=== PATIENT | male | born 1970 | race American Indian/Alaskan Native ===

== ENCOUNTER 2017-03-28 12:37 | Observation (INO) | payer MEDICAID ==
[~2017-03-28] VITALS: Ht 170.2 cm; Wt 78.6 kg
[~2017-03-28 12:37] MED LIST: ATIVAN0.5 MG PO; LAMICTAL 100 M100 MG PO; LAMICTAL200 MG PO; LORTAB 5/500 501 TAB PO; MEDROL 4MG. DOSE4 MG PO; MIRALAX(PO17 GM/1 PA PO; NOMEDS; PERCOCET 5/3251 EACH PO; PHENERGAN 25MG.25 M1 PO; PREDNISONE 20MG20 MG PO; PRILOSEC OTC20 MG PO; PROMETHAZINE12.5 M1 PO; RANITIDINE HCL300 M2 PO; SULFACETAMI15 ML/BO1 OP; ZOFRAN ODT4 MG PO
[2017-03-28 12:42] VITALS: BP 118/76
[2017-03-28 13:15] LABS: HEMOGLOBIN 14.1 g/dL (14.1-18.0); LYMPH # 1.4 K/mm3 (0.7-4.5)
--- NOTE | 2017-03-28 13:18 | Emergency Room Report ---
History of Present Illness Time Seen by [id number] Presenting Problem in Triage HPt arrived:Walked Presenting Problem:PAIN TO UPPER EXTREMITIES AND BOTH SHOULDERS. 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 N Clinical Suspician of Infection? N Mental Status: 1 - Regular (Normal Baseline) Sepsis Risk:Low Sepsis Risk Have you (or family members/close friends) recently traveled outside the [place]? N If Yes, where/when: Have you had exposure to infectious disease within the past month? N TB? Other? Specify: 47 years old male with a history of seizures. Yesterday, he developed bilateral arm swelling and dull aching pain 8/10 worse with activities, he denies over exerting himself out of the workup exposure to medications or chemicals. Today the swelling has subsided but the pain is worse rated 10/10. He admits to having low back pain pressure in character and worse with leg movement. He denies having chest pain shortness of breath palpitations abdominal pain nausea vomiting diarrhea dysuria hematuria or frequency. he denies fever , chills, sore throat or body aches per his sister He was admitted 2-3 years ago for acute renal failure and eneded up with negative cardiac cath at a [facility]. Source patient, family, old records Exam Limitations language barrier, sister was translating. ALLERGIES Coded Allergies: atorvastatin (From LIPITOR) (FACIAL SWELLING 08/04/15) hydrocodone (FACIAL SWELLING 08/04/15) oxycodone (From PERCOCET) (FACIAL SWELLING 08/04/15) Home Medications Active Scripts POLYETHYLENE GLYCOL (Miralax) 17 GM PO DAILY 30 Days Prov: 03/23/16 Reported Medications Lamotrigine (Lamictal) 200 MG PO DAILY History Medical History General CAD? No Angina: No HI: No Hypertension? Yes Hyperlipidemia? Yes CHF? No DVT? No PE? No COPD? No Asthma? No Anemia? No GERD? No Gastric ulcers? No GI Bleed? No Hernia? No Thyroid Problems? No Hypothyroidism? No CVA? No Seizures? Yes Diabetes? No Insulin Dependent: No Insulin Pump: No Home FSBS? No Renal Insuffiency? No End Stage Renal Disease? No UTI? No Stones? No BPH? No GB Disease: Yes Nephritic Syndrome? No Asplenia? No Hepatitis? No Sickle Cell Disease? No Arthritis? No Migraines? No Cataracts? No Glaucoma? No MRSA? No HIV? No TB? No Anxiety? No Depression? No Cancer? No More? No Immunization Hx DT/Tetanus 1-4 Years Ago Flu 2012-14FSN Pneumonia Refuses Surgical Hx Previous Surgery?Y I&D RT LEG HEART CATH GALLBLADDER Family History Family Hx Diabetes Yes CAD Yes Hypertension Yes Hyperlipidemia Yes Cancer Yes TB No Social History Smoking Hx Smoker: Never Smoker Tobacco: No Alcohol Alcohol: No Review of Systems All Other Systems Reviewed and Negative Constitutional no symptoms reported Eyes no symptoms reported ENT no symptoms reported. Respiratory no symptoms reported Cardiovascular no symptoms reported Gastrointestinal no symptoms reported Genitourinary no symptoms reported. Musculoskeletal see HPI, back pain, muscle pain Skin no symptoms reported (acne) Psychiatric/Neurological no symptoms reported Physical Exam Vital Signs Vital Signs Date Time Temp Pulse Resp B/P Pulse O2 O2 Flow FiO2 Ox Delivery Rate 03/28 1355 51 20 109/65 98 03/28 1309 98.1 60 20 118/76 98 03/28 1242 98.1 60 20 118/76 98 tanned face with keloid acne (Collins SHAIKH,[facility]) - WBC >12,000 or <4,000 or 10% bands? 2 or more SIRS Criteria Met? B/P:118/76 MAP:90 Creatinine >2.0? UA output<0.5ml/kg/hr for 2 hrs? Platelet count >100,000? Lactate >2.0mmol/1? INR >1.2 or PTT > than 60 sec? Evidence of Organ Dysfunction? Provider documented clinical suspician of infection? N Sepsis Criteria Count: 1 Sepsis Risk: Low Sepsis Risk General Appearance normal appearance, WD/WN Eye Exam - bilateral eye normal exam, bilateral eye PERRL, bilateral eye EOMI Ear, Nose, Throat hearing grossly normal, normal ENT inspection Neck normal inspection, non-tender, supple, full range of motion Respiratory Status Yes: trachea midline, chest symmetrical, non tender chest. No: respiratory distress. Lung Sounds bilateral: normal breath sounds, lungs clear. Cardiovascular normal exam, regular rate/rhythm, no peripheral edema, no gallop, no JVD, no murmur, no rub, normal peripheral pulses Peripheral Pulses Pulses normal Yes Gastrointestinal normal bowel sounds, normal exam, non tender, soft, no organomegaly Back normal inspection, no CVA tenderness, no vertebral tenderness Extremities non-tender, normal range of motion, swelling (mild swelling of the left fore), mild swelling of the left forearm with NVI. Male Genitalia normal genitalia (circumcised), normal prostate, no hernia Nurse present during exam? Yes Neurologic alert, manager intensive care II-XII nml as tested, normal exam, oriented x 3 Reflexes Reflexes normal Yes Mental status normal mood/affect Skin intact, warm/dry (tanned with facial acne) Lymphatic no adenopathy Medical Decision Making LABS/Meds/Orders Pt receiving controlled substance in ED? No Results/Orders Laboratory Tests 03/28/17 1310: B-Natriuretic Peptide 20, D-Dimer < 100, ESR 0 03/28/17 1309: Sodium 141, Potassium 3.8, Chloride 106, Carbon Dioxide 26, BUN 19 H, Creatinine 1.0, Estimated Creat Clear 101, Estimated GFR (MDRD) 80, Glucose 136 H, Calcium 8.1 L, Total Bilirubin 0.7, AST 33, ALT 61, Alkaline Phosphatase 100 , Creatine Kinase 220, CK-MB (CK-2) Rel Index 0.8, CK and CKMB Interp 1.7, Troponin I < 0.02, Total Protein 7.1, Albumin 3.8, Globulin 3.3 H, Albumin/ Globulin Ratio 1.2, WBC 5.4, RBC 4.57 L, Hgb 14.1, Hct 40.2 L, MCV 88.1, RDW 13.8, Plt Count 193, MPV 9.6, Gran % 65.8, Gran # 3.6, Lymphocytes % 26.0, Monocytes % 4.9, Eosinophils % 2.8, Basophils % 0.5, Lymphocytes # 1.4, Monocytes # 0.3, Eosinophils # 0.2, Basophils # 0.0, PUBS MCHC 35.0, MCH 30.8 Current Medication Orders Sig/Kathia Start time Last Medication Dose Route Stop Time Status Admin Acetaminophen 0 .STK-MED ONE 03/28 144 DC PO Acetaminophen 650 MG ONCE ONE 03/28 1445 DC 03/28 PO 03/28 144 1446 Sodium Chloride 10 ML PRN PRN 03/28 1300 AC IV 03/29 1256 Orders Procedure Date/time Status CHEST(2 VIEWS-NOT PORTABLE) 03/28 1326 Active D-DIMER 03/28 1326 Complete BRAIN NATRIURETIC PEPTIDE 03/28 1326 Complete SED RATE 03/28 1325 Complete 12 LEAD EKG-ÁNGEL (INITIAL) 03/28 1300 Active ELECTROCARDIOGRAM REQUEST 03/28 1259 Active IV SALINE LOCK 03/28 1259 Active COMPLETE METABOLIC PANEL 03/28 1259 Complete CBC WITH AUTO DIFF 03/28 1259 Complete CARDIAC ENZYMES 03/28 1259 Complete XRAY/CT/US XRAY/CT/US XRAY chest, NAD XR interpretation by reviewed by me Xray Results normal/NAD Departure Departure Time of Disposition 1316 Disposition Still a Patient Clinical Impression Primary Impression: Arm pain Secondary Impressions: Atypical chest pain, Back pain Condition STABLE Referrals Danny SHAIKH,Rox Rae Additional Instructions 1300 DUE TO THE ATYPICAL PRESENTATION AND EKG, I TEXTED THE EKG TO DR ARTHUR WHO PRESENTED AND INTERVIEWED THE PATIENT IN THE ED , EXAMINED AND COMPARED HIS EKG. AWAITING THE OLD CATH REPORT AND LAB RESULTS. ST [facility] EKG WAS NEGATIVE THREE YEARS AGO BUT HE CONTINUED TO HAVE PAIN, I DISCUSSED WITH PCP TO ADMIT FOR R/O HI AND FURTHER WORK UP. Discharge Counseling Counseled pt/family regarding diagnosis, medications/RX, home care, follow up needs ED Critical Care Critical Care No If Critical Care minutes are documented, the time involved in the performance of seperately reportable procedures was not counted toward critical care time documented. I directly delivered medical care to this critically ill and/or injured patient. Timely evaluation and treatment was necessary to address the significant organ system(s) dysfunction present in this patient. at 1520
[2017-03-28 13:37] LABS: BUN 19 mg/dL (7-18)
[2017-03-28 13:38] LABS: GFR (ESTIMATED) 80 ML/MIN (>60)
--- NOTE | 2017-03-28 15:40 | RADIOLOGY REPORT PS360 ---
CHEST(2 VIEWS-NOT PORTABLE) HISTORY: bilateral arm pain ORDERING PHYSICIAN: Nahed Guadalupe MD PATIENT AGE: 47 years COMPARISON: 07/07/2015 FINDINGS: The cardiomediastinal silhouette and pulmonary vascularity are within normal limits. The lungs are clear without infiltrates, suspicious nodules, or pleural effusions. No acute bony abnormalities. There is a faint nodular opacity overlying the right lung base may be due to nipple shadow. This may be confirmed with follow-up nipple markers IMPRESSION: No acute finding
[2017-03-28 17:11] VITALS: BP 128/71
[2017-03-28 17:20] VITALS: BP 128/71
[2017-03-28 19:28] VITALS: BP 119/63
[2017-03-28 19:35] VITALS: BP 119/63
[2017-03-29 04:13] VITALS: BP 121/54
--- NOTE | 2017-03-29 07:35 | PHARMACY CLINIC NOTE ---
Patient Demographics Patient Demographics Admission date: 03/28/17 Date: 03/29/17 Time: 0734 Allergies Coded Allergies: atorvastatin (From LIPITOR) (FACIAL SWELLING 08/04/15) hydrocodone (FACIAL SWELLING 08/04/15) oxycodone (From PERCOCET) (FACIAL SWELLING 08/04/15) HEIGHT- FT: 5 IN: 7.00 K.557 VTE General Information Labs: Laboratory Tests 03/28 1309 Hematology Hgb (14.1 - 18.0 g/dL) 14.1 Hct (42.0 - 52.0 %) 40.2 L Plt Count (142 - 424 K/mm3) 193 Disclaimer The following section includes nursing documentation that has been pulled in for pharmacy review. Patient's VTE score: 0 Patient's VTE Risk: VERY LOW RISK Clinical trial participant? No VTE prophylaxis [id number] VTE prophylaxis ordered? Yes Type of prophylaxis/treatment: SOURAV at 0734
[2017-03-29 07:59] VITALS: BP 106/57
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
[2017-03-29 15:23] VITALS: BP 106/57
--- NOTE | 2017-04-03 08:38 | RADIOLOGY REPORT PS360 ---
PROCEDURE: 2-D M-mode and color Doppler study INDICATIONS FOR THE TEST: Chest pain COPD Heart Murmur Tobacco Smoking Palpitations Fatigue Syncope Edema+ Hypertension+Diabetes Mellitus Rheumatic Fever SOB+SIMENTAL Obesity Hyperlipidemia+ Family History HD Additional History abnormal ekg, angina PATIENT INFORMATION HEIGHT: 67 WEIGHT:170 GENDER: Male B/P:106/57 2-D/M-MODE INTERPRETATION: 2-D MEASUREMENTS OBSERVED VALUES IN CMS Right Ventricular Dimension (RVDd) 2.4 Interventricular Septum (Thickness)(IVsd) 1.0 Left Ventricular Internal Dimensions(LVIDd) 4.5 Left Ventricular Posterior Wall (Thickness)(LVPWd) 0.8 Aortic Root 2.9 Aortic Cusp Separation 2.1 Left Atrial Dimensions (LAD) 3.5 2D 1. The left atrium is normal size, left ventricle is normal size, left ventricle wall thickness is upper limit of the normal, there is preserved left ventricular systolic function, visually estimated ejection fraction 55% with no obvious regional wall motion abnormality. 2. The right atrium and right ventricle are normal size and contractility. 3. The aortic, mitral and tricuspid valvular grossly normal. 4. The pulmonic valve is poorly visualized. 5. No significant pericardial effusion noted. DOPPLER INTERROGATION: Doppler interrogation of the aortic mitral and tricuspid valvular presence of mild mitral and tricuspid regurgitation, tricuspid and jet velocity insufficient for calculation of the right ventricular systolic pressure, diastolic parameters are within normal range. CONCLUSION: 1. Normal left ventricular size, preserved left ventricular systolic function, visually estimated ejection fraction of 55% with no obvious regional wall motion abnormality, diastolic parameters are within normal range. 2. Mild mitral and tricuspid regurgitation. 3. No significant pericardial effusion noted.
== END 2017-03-29 15:30 | disposition home or self-care (01) ==
LOC: ER 12:37 → 2ND 15:43 → ER 15:43 → 2ND 16:05
PROVIDERS: Emergency Medicine
DX: I20.9 Angina pectoris, unspecified (principal); I10 Essential (primary) hypertension; R07.9 Chest pain, unspecified
CPT/HCPCS: G0378

== ENCOUNTER 2017-06-19 10:40 | Emergency (ER) | payer MEDICAID ==
[~2017-06-19] VITALS: Ht 170.2 cm; Wt 79.4 kg
--- OUTSIDE RECORDS SUMMARY | 2017-06-19 10:45 | External Medical Summary Rpt | CCD ---
Author Author , HAYDER SINGLETARY Address Unknown Phone Purpose Continuity of Care Document - 04-26-2012 through 2016 Problems Code Diagnosis DOS Provider Status E86.0 DEHYDRATION I21.4 NON-ST ELEVATION (NSTEMI) MYOCARDIAL INFARCTION K82.9 DISEASE OF GALLBLADDER , UNSPECIFIED M54.9 DORSALGIA, UNSPECIFIED M75.81 OTHER SHOULDER LESIONS, RIGHT SHOULDER M75.82 OTHER SHOULDER LESIONS, LEFT SHOULDER M79.603 PAIN IN ARM, UNSPECIFIED N17.9 ACUTE KIDNEY FAILURE, UNSPECIFIED R07.89 OTHER CHEST PAIN R09.1 PLEURISY R10.9 UNSPECIFIED ABDOMINAL PAIN R11.10 VOMITING, UNSPECIFIED T65.291A TOXIC EFFECT OF TOBACCO AND NICOTINE, ACCIDENTAL, INIT
--- OUTSIDE RECORDS SUMMARY | 2017-06-19 10:45 | External Medical Summary Rpt | CCD ---
Author Author [employer] Organization [employer] Address Unknown Phone Unavailable Purpose Continuity of Care Document - through 2016
--- OUTSIDE RECORDS SUMMARY | 2017-06-19 10:46 | External Medical Summary Rpt | CCD ---
Demographics Preferred Language Moroccan Marital Status Unknown Congregational Affiliation Unknown Race Unknown Ethnic Group Unknown Author Author , HAYDER SINGLETARY Address Unknown Phone Immunization Unable to retrieve immunization data due to connection failure with Immunization Registry. Please try again later.
--- OUTSIDE RECORDS SUMMARY | 2017-06-19 10:46 | External Medical Summary Rpt | CCD ---
Demographics Preferred Language Marshallese Marital Status Unknown Yazidism Affiliation Unknown Race Unknown Ethnic Group Unknown Author Author , HAYDER SINGLETARY Address Unknown Phone Immunization Unable to retrieve immunization data due to connection failure with Immunization Registry. Please try again later.
--- OUTSIDE RECORDS SUMMARY | 2017-06-19 10:47 | External Medical Summary Rpt ---
Author Author [employer], [employer] Organization [employer] Address Unknown Phone Unavailable Results Erythrocyte sedimentation rate by Westergren method Observa Value Referen Units Interpr Notes Date tion ce etation Range Erythrocy 0 - 15 mm/hr Normal No Mar 28 te informati 2016 1:10 sedimenta on in PM tion rate source by data Westergre n method Natriutietic peptide B [Mass/volume] in Serum or Plasma Observa Value Referen Units Interpr Notes Date tion ce etation Range Natriutie 0 - 100 pg/mL Normal No Mar 28 tic informati 2016 1:10 peptide B on in PM source [Mass/vol data ume] in Serum or Plasma CBC W Auto Differential panel in Blood Observa Value Referen Units Interpr Notes Date tion ce etation Range Basophils 0 - 0.2 K/MM3 Normal No Mar 28 informati 2016 1:09 [#/volume on in PM ] in source Blood by data Automated count Basophils 0.1 - 2.0 % Normal No Mar 28 informati 2016 1:09 leukocyte on in PM s in source Blood by data Automated count Eosinophi 0.0 - 0.4 K/mm3 Normal No Mar 28 ls informati 2016 1:09 [#/volume on in PM ] in source Blood by data Automated count Eosinophi 0.1 - % Normal No Mar 28 ls/100 12.0 informati 2016 1:09 leukocyte on in PM s in source Blood by data Automated count Granulocy 1.3 - 8.0 K/mm3 Normal No Mar 28 radha informati 2016 1:09 [#/volume on in PM ] in source Blood by data Automated count Granulocy 37.0 - % Normal No Mar 28 radha/100 80.0 informati 2016 1:09 leukocyte on in PM s in source Blood by data Automated count Hematocri 42.0 - % Low No Mar 28 t [Volume 52.0 informati 2016 1:09 on in PM Fraction] source of Blood data Hemoglobi 14.1 - g/dL Normal No Mar 28 n 18.0 informati 2016 1:09 [Mass/vol on in PM ume] in source Blood data Lymphocyt 0.7 - 4.5 K/mm3 Normal No Mar 28 es informati 2016 1:09 [#/volume on in PM ] in source Unspecifi data ed specimen by Automated count Lymphocyt 10 - 50 % Normal No Mar 28 es informati 2016 1:09 [#/volume on in PM ] in source Unspecifi data ed specimen by Automated count Erythrocy 27 - 31.2 pg Normal No Mar 28 te mean informati 2017 1:09 corpuscul on in PM ar source hemoglobi data n [Entitic mass] Erythrocy 31.8 - g/dl Normal No Mar 28 te mean 35.4 informati 2016 1:09 corpuscul on in PM ar source hemoglobi data n concentra tion [Mass/vol ume] by Automated count Erythrocy 82.2 - fl Normal No Mar 28 te mean 97.8 informati 2016 1:09 corpuscul on in PM ar volume source [Entitic data volume] by Automated count Monocytes 0.1 - 1.0 K/mm3 Normal No Mar 28 informati 2016 1:09 [#/volume on in PM ] in source Blood by data Automated count Monocytes 1.7 - 9.3 % Normal No Mar 28 /100 informati 2017 1:09 leukocyte on in PM s in source Blood by data Automated count Platelet 7.4 - fl Normal No Mar 28 mean 10.4 informati 2016 1:09 volume on in PM [Entitic source volume] data in Blood by Automated count Platelets 142 - 424 K/mm3 Normal No Mar 28 informati 2016 1:09 [#/volume on in PM ] in source Blood data Erythrocy 4.6 - 6.2 M/mm3 Low No Mar 28 radha informati 2017 1:09 [#/volume on in PM ] in source Amniotic data fluid Erythrocy 11.5 - % Normal No Mar 28 te 17.5 informati 2016 1:09 distribut on in PM ion width source [Entitic data volume] by Automated count Leukocyte 4.8 - K/MM3 Normal No Mar 28 s 10.8 informati 2016 1:09 [#/volume on in PM ] in source Blood data Lamotrigine [Mass/volume] in Serum or Plasma Observa Value Referen Units Interpr Notes Date tion ce etation Range Lamotrigi 2.0 - ug/mL No Detection Mar 10 ne 20.0 informati Limit = 2017 8:45 [Mass/vol on in 1.0Perfor PM ume] in source med at: Serum or data BN - Plasma [facility] [address] [place], [place] [id number] [employer]ular Saw Filer: Mac Phillip MD, Phone: [phone] 4 Comprehensive metabolic 2000 panel in Serum or Plasma Observa Value Referen Units Interpr Notes Date tion ce etation Range Albumin/G 1.1 - 1.8 No Normal No Mar 10 lobulin informati informati 2016 8:45 [Mass on in on in PM ratio] in source source Serum or data data Plasma Albumin 3.4 - 5.0 gm/dL Normal No Mar 10 [Mass/vol informati 2016 8:45 ume] in on in PM Serum or source Plasma data Alkaline 46 - 116 U/L Normal No Mar 10 phosphata informati 2016 8:45 se on in PM [Enzymati source c data activity/ volume] in Serum or Plasma Bilirubin 0.2 - 1.0 mg/dL Normal No Mar 10 .total informati 2016 8:45 [Mass/vol on in PM ume] in source Serum or data Plasma Urea 7 - 18 mg/dL High No Mar 10 nitrogen informati 2016 8:45 [Mass/vol on in PM ume] in source Serum or data Plasma Calcium 8.5 - mg/dL Normal No Mar 10 [Mass/vol 10.1 informati 2016 8:45 ume] in on in PM Serum or source Plasma data Chloride 98 - 107 mmoL/L Normal No Mar 10 [Moles/vo informati 2016 8:45 lume] in on in PM Serum or source Plasma data Carbon 21.0 - mmoL/L Normal No Mar 10 dioxide, 32.0 informati 2017 8:45 total on in PM [Moles/vo source lume] in data Serum or Plasma Creatinin 0.70 - mg/dL High No Mar 10 e 1.30 informati 2017 8:45 [Mass/vol on in PM ume] in source Serum or data Plasma Creatinin 50 - 200 ML/MIN Normal No Mar 10 e renal informati 2017 8:45 clearance on in PM source predicted data by Cockcroft -Gault formula Estimated >60 ML/MIN No REFERENCE Mar 10 informati RANGE: 2017 8:45 glomerula on in >60 PM r source ML/MIN/1. filtratio data 73 SQUARE n rate METERSIf (GF this patient is -A merican, then multiply theresult by 1.210. Globulin 1.3 - 3.2 gm/dL High No Mar 10 [Mass/vol informati 2016 8:45 ume] in on in PM Serum source data Glucose 74 - 106 mg/dL High No Mar 10 [Mass/vol informati 2016 8:45 ume] in on in PM Serum or source Plasma data Potassium 3.5 - 5.1 mmoL/L Normal No Mar 102016 8:45 [Moles/vo on in PM lume] in source Serum or data Plasma Sodium 136 - 145 mmoL/L Normal No Mar 10 [Moles/vo 2016 8:45 lume] in on in PM Serum or source Plasma data Aspartate 15 - 37 U/L Normal Mar 102016 8:45 aminotran on in PM sferase source [Enzymati data c activity/ volume] in Serum or Plasma Alanine 12 - 78 U/L Normal No Mar 10 aminotran 2016 8:45 sferase on in PM [Enzymati source c data activity/ volume] in Serum or Plasma Protein 6.4 - 8.2 gm/dL Normal Mar 10 [Mass/vol informati 2016 8:45 ume] in on in PM Serum or source Plasma data CBC W Auto Differential panel in Blood Observa Value Referen Units Interpr Notes Date tion ce etation Range Basophils 0 - 0.2 K/MM3 Normal No Mar 102016 8:45 [#/volume on in PM ] in source Blood by data Automated count Basophils 0.1 - 2.0 % Normal No Mar 10 / informati 2016 8:45 leukocyte on in PM s in source Blood by data Automated count Eosinophi 0.0 - 0.4 K/mm3 Normal Mar 10 ls ati 2016 8:45 [#/volume on in PM ] in source Blood by data Automated count Eosinophi 0.1 - % Normal Mar 10 ls/100 12.0 informati 2016 8:45 leukocyte on in PM s in source Blood by data Automated count Granulocy 1.3 - 8.0 K/mm3 High No Mar 10 ardha informati 2016 8:45 [#/volume on in PM ] in source Blood by data Automated count Granulocy 37.0 - % Normal No Mar 10 radha/100 80.0 informati 2016 8:45 leukocyte on in PM s in source Blood by data Automated count Hematocri 42.0 - % Normal No Mar 10 t [Volume 52.0 informati 2016 8:45 on in PM Fraction] source of Blood data Hemoglobi 14.1 - g/dL Normal No Mar 10 n 18.0 informati 2016 8:45 [Mass/vol on in PM ume] in source Blood data Lymphocyt 0.7 - 4.5 K/mm3 Normal No Mar 10 es informati 2016 8:45 [#/volume on in PM ] in source Unspecifi data ed specimen by Automated count Lymphocyt 10 - 50 % Normal No Mar 10 es inform2016 8:45 [#/volume on in PM ] in source Unspecifi data ed specimen by Automated count Erythrocy 27 - 31.2 pg Normal No Mar 10 te mean informati 2016 8:45 corpuscul on in PM ar source hemoglobi data n [Entitic mass] Erythrocy 31.8 - g/dl Normal No Mar 10 te mean 35.4 informati 2016 8:45 corpuscul on in PM ar source hemoglobi data n concentra tion [Mass/vol ume] by Automated count Erythrocy 82.2 - fl Normal No Mar 10 te mean 97.8 informati 2016 8:45 corpuscul on in PM ar volume source [Entitic data volume] by Automated count Monocytes 0.1 - 1.0 K/mm3 Normal No Mar 10 informati 2016 8:45 [#/volume on in PM ] in source Blood by data Automated count Monocytes 1.7 - 9.3 % Normal No Mar 10 /100 informati 2017 8:45 leukocyte on in PM s in source Blood by data Automated count Platelet 7.4 - fl Normal No Mar 10 mean 10.4 informati 2016 8:45 volume on in PM [Entitic source volume] data in Blood by Automated count Platelets 142 - 424 K/mm3 Normal No Mar 10 informati 2016 8:45 [#/volume on in PM ] in source Blood data Erythrocy 4.6 - 6.2 M/mm3 Normal No Mar 10 radha informati 2016 8:45 [#/volume on in PM ] in source Amniotic data fluid Erythrocy 11.5 - % Normal No Mar 10 te 17.5 informati 2016 8:45 distribut on in PM ion width source [Entitic data volume] by Automated count Leukocyte 4.8 - K/MM3 High No Mar 10 s 10.8 informati 2016 8:45 [#/volume on in PM ] in source Blood data EC ECHOCARDIOGRAM COMPLETE W DOPPLER AND COLOR FLOW MAPPING Observa Value Referen Units Interpr Notes Date ti ce etation Range St. No No No No Apr 28 Elizabe informa informa informa informa 2011 in tion in ti in ti in 9:19 AM [facility] source source source source are-[place] data data data data [id number] 00 [facility] joelle [facility] [id number] [phone] mTranst horacic EchoRep Verónica MARTINETREY DILLARD Exam Date: 012 09:19 Orderin g Phys: ECHO MALDONADO JAge: 42 Gender: M Exam Locatio n: [facility] ECHO Referri ng Phys:MANJINDER MACHADO JMRN: [id number] Room Number: [id number] Technol ogist: Jennifer Friend, RHETTCSDOB : 1970-07 -23Ht: 67 in Wt: 180 lbs BSA: 1.98 Accessi on Number: [id number]: 53 bpm BP: 114 / 54 mmHgPro cedure CPT:Ind ication : ISCHEMI C STROKEI CD-9 Codes:C ritical Result: No Critica l Finding History : Ischemi c Stroke, SOB, Numbnes sRhythm : Bradyca rdiaMEA SUREMEN TS (Male / Female) Normal Values Technic al Quality :MEASUR EMENTS 2D ECHOLV Diastol ic Diamete r AISHA 5.2 cm 4.2 - 5.9 / 3 LVPW Diastol ic Thickne ss 1.0 cm 0.6 - 1.1 cmLV Systoli c Diamete r PLAX 3.6 cm RV Interna l Dim ED PLAX 2.2 cmIVS Diastol ic Thickne ss 0.9 cm 0.6 - 1.0 / 0.6 - 0.9 cmMEASU REMENTS M-MODEL V Diastol ic Diamete r MM 5.9 cm 4.2 - 5.9 / 3 LVPW Diastol ic Thickne ss 1.1 cm 0.6 - 1.0 / 0.6 - 0.9 cmLV Systoli c Diamete r MM 3.0 cm RV Diastol ic Diamete r MM 1.2 cmLV Cardiac Index MM Teich 3712.8 cm3 Aortic Root Diamete r MM 3.3 cmIVS Diastol ic Thickne ss M 1.1 cm 0.6 - 1.1 / 0 LA Systoli c Diamete r MM 4.8 cmMEASU REMENTS DOPPLER Mitral E to A Ratio 1.2 Right Ventric ular Systoli 32.7 mmHgTR Peak Velocit y 238.0 cm/s Mitral E to LV E' Lateral 4.3TR Peak Gradien t 22.7 mmHg Mitral E to LV E' Septal 5.4FIND INGSLef t Ventric le Left ventric ular ejectio n fractio n estimat ed at 55-60%. Left ventric ular wall thickne ss at upper limits of normal. Normal global left ventric ular size, systoli c functio n with no obvious regiona l wall motion abnorma lities. Right Ventric le Normal right ventric ular size and functio n.Right Atrium Right atrial size appears upper limits of normal. Left Atrium Moderat e left atrial dilatat ion.Federico ral Valve Mild thicken ing/yulia cificat ion of the mitral valve leaflet s. Mild mitral regurgi tation. Aortic Valve Trileaf let aortic valve. Diffuse thicken ing (sclero sis) of the aortic valve cusps without reduced excursi on.No aortic valve stenosi s or regurgi tation. Tricusp id Valve Structu rally normal tricusp id valve. Mild tricusp id regurgi tation. Right ventric ular systoli c pressur eestima elisabeth at 33mmHg. Pulmoni c Valve Structu rally normal pulmoni c valve. Trace pulmoni c regurgi tation. Pericar dium No pericar dial effusio n.Aorta Normal size aortic root and proxima l ascendi ng aorta.C ONCLUSI ONSLeft ventric ular ejectio n fractio n estimat ed at 55-60%. No obvious regiona l wall motion abnorma lities. Mild mitral regurgi tation. Right ventric ular systoli c pressur e estimat ed at 33mmHg. Mild mitral regurgi tation. Warren mendoza MD(Elec tronica lly Signed) Final Date:28 April 2012 16:25 MRI BRAIN WO CONTRAST Observa Value Referen Units Interpr Notes Date tion ce etation Range TEXT MRI of No No No No Apr 28 DIAGNOS the informa informa informa informa 2011 IS brain tion in tion in tion in tion in 8:13 AM [facility] without source source source source data data data data contras t, 12 series, 7:35 a.m., May 09,1251 560Righ t-sided weaknes s, no contras t, no priorsT he orbital content s, pituita ry, and suprase llar cistern are normal. Tonsill ar positio n is abit low but within the range of normal. There is normal flow void in theveno us sinuses ,verteb robasil ar system, and distal interna l carotid arterie s the CSFspac es are normal. Thereis no extra-a xial fluid collect ion. There is mild leukoma lacia mostpro nounced in the frontal lobes. This is likely due to prior small vessel ischemi c disease . Priortr auma anddemy elinati on are also conside rations but there is nothing specifi c hereto suggest multipl esclero sis there is no subacut e or chronic hemorrh age. Diffusi on images ashow no acute infarct .Impres vasquez,No evidenc e of acute cerebra l infarct .Mild leukoma lacia in the frontal lobes, right greater than left. This islikel y due to priorsm all vessel ischemi c disease or prior trauma. Cruz MRI ANGIOGRAM EXTRACRANIAL WO CONTRAST Observa Value Referen Units Interpr Notes Date tion ce etation Range TEXT MRA of No No No No Apr 28 DIAGNOS the informa informa informa informa 2011 IS neck, tion in tion in tion in tion in 8:01 AM [facility] without source source source source data data data data contras t, 6 series, 7:35 a.m., May 09, [id number] t-sided weaknes s, no contras t, no priorsT he patient was imaged from the upper chest to the base of the skull. Thecomm on carotid arterie s are mildly asymmet laura the right being larger than the left. Theinte rnal carotid arterie s are mildly asymmet laura, right larger than left. This is due todevel opmenta l absence ofthe left A1 segment and is not felt to be signifi cant. There is no focalle vasquez and nohemod ynamica lly signifi cant stenosi s. The vertebr al arterie s are normal. Impress ion,Neg ative MRA of the neckMar ks MRI ANGIOGRAM INTRACRANIAL WO CONTRAST Observa Value Referen Units Interpr Notes Date tion ce etation Range TEXT MRA of No No No No Oct 1 DIAGNOS the informa informa informa informa 2011 IS brain, tion in tion in tion in tion in 8:00 AM [facility] 3 source source source source series, data data data data 7:35 a.m., May 09, [id number] Right-s ided weaknes s, no contras t, no priorsT he left vertebr al artery is smaller than the right. The vertebr obasila rsystem is tortuou s.The right P1 is supplie d primari ly by the posteri or communi cator. There isno signifi cantpos terior communi cator on the left. There is moderat e diffuse narrowi ng ofthe distal left andrigh t vertebr al arterie s. These vessels show a 50% loss of cross-s ectiona ldiamet er. Some ofthis may be technic al. The distal interna l carotid arterie s are mildlya symmetr ic the rightbe ing larger than the left. This is due to the fact that both anterio rcerebr als are supplie dby the right interna l carotid artery. The M1 segment s are normal. The right A1 is normal. Impress ion,Mod erate stenosi s of the distal vertebr al arterie s bilater ally.No hemodyn amicall y signifi cant stenosi s.Cruz XR CHEST PA AND LATERAL Observa Value Referen Units Interpr Notes Date tion ce etation Range TEXT AP and No No No No Sep 29 DIAGNOS lateral informa informa informa informa 2011 IS chest: tion in tion in tion in tion in 11:26 BATTERY source source source source PM 04/26/20 data data data data 12.COMP ARISON: None.IN DICATIO N: 42-year -old with numbnes s and dizzine ss.FIND INGS:He art size is mildly enlarge d. Lungs are not well expande d on APradio graph. No focalin filtrat es or pleural effusio ns.IMPR ESSION: 1. Mild cardiom egaly with clear lungs. CT HEAD STROKE PROTOCOL Observa Value Referen Units Interpr Notes Date tion ce etation Range TEXT Head CT No No No No Apr 26 DIAGNOS stroke informa informa informa informa 2012 IS tion in tion in tion in tion in 10:15 BATTERY protoco source source source source PM l: data data data data 04/26/20 12; 22:15.C OMPARIS ON: 1INDICA TION: 42-year -old with leukemi a. Left-si ded facial droop.F INDINGS :Ventri cles are normal in size, configu ration and positio n. Brainpa renchym a attenua tion isnorma l. Jack-wh ite differe ntiatio n remains symmetr ic and normal. Nolocal ized mass effect. Noparen chymal or extra-a xial hemorrh age.Par anasal and mastoid sinuses are clear.I MPRESSI ON:1. Normal study.F indings called to Dr. Cherry at 10:20 p.m. EK EKG 12 LEAD Observa Value Referen Units Interpr Notes Date tion ce etation Range Sinus No No No No Apr 26 bradyca informa informa informa informa 2012 rdia.An tion in tion in tion in tion in 9:49 PM terosep source source source source sarah ST data data data data elevati on, CONSIDE R ACUTE INFARCT No change from previou s tracing Abnorma l ECG
--- OUTSIDE RECORDS SUMMARY | 2017-06-19 10:47 | External Medical Summary Rpt ---
[...] Serum or data BN - Plasma [facility] [address] [place], [place] [id number] Investment Fund Manager: Mac Phillip MD, Phone: [phone] Comprehensive metabolic 2000 panel in Serum [...] - 8.0 K/mm3 High No Mar 10 radha informati 2016 8:45 [...] in ti in ti in 9:19 AM [facility] source source source source are-Douglas data data data data [id number] 00 [facility] joelle [facility] [id number] [phone] mTranst horacic EchoRep Verónica MARTINETREY DILLARD Exam Date: 012 09:19 Orderin g Phys: ECHO MALDONADO JAge: 42 Gender: M Exam Locatio n: [facility] Referri ng Phys:MANJINDER MACHADO JMRN: [id number] Room Number: [id number] Technol ogist: Jennifer Friend, RHETTCSDOB : 1970-07 -23Ht: 66 in Wt: 180 lbs BSA: 1.98 Accessi on Number: [id number]: 53 bpm BP: 114 / 54 [...] Right ventric ular systoli c pressur eestima elisabteh at 33mmHg. Pulmoni c Valve Structu rally [...] t, 6 series, 7:35 a.m., May 09, [id number] t-sided weaknes s, no contras t, [...] data data data 7:35 a.m., May 09, [id number] Right-s ided weaknes s, no contras t, [...]
--- NOTE | 2017-06-19 11:09 | Urgent Treatment Center Report ---
See Addendum History of Present Issue Date/Time Seen by Provider 06/19/17 1103 Visit Reason Pt arrived:Walked Presenting Problem:PT IS C/O COUGH. SOA AND BACK PAIN Location if Accident: Onset of symptoms date/time:/ or onset unknown for:MEDICAL HX UNKNOWN Have you (or family members/close friends) recently traveled outside the [place]? N If Yes, where/when: Have you had exposure to infectious disease within the past month? TB? Other? Specify: Pateint state that he has had cough, pain in his back and short of breath at times. State that when he gets coughing he feels short of breath State that this has been occuring for awhile now and flares up on occasion States that he has not seen his family doctor yet but wanted to come in to make sure he didn't have pneumonia State that when he gets coughing his back hurts ALLERGIES Coded Allergies: acetaminophen (From NORCO) (06/19/17) atorvastatin (From LIPITOR) (FACIAL SWELLING 08/04/15) hydrocodone (FACIAL SWELLING 08/04/15) oxycodone (From PERCOCET) (FACIAL SWELLING 08/04/15) Home Medications Reported Medications Lamotrigine (Lamictal) 200 MG PO DAILY History Medical History General CAD? No Angina: No CO: No Hypertension? Yes Hyperlipidemia? Yes CHF? No DVT? No PE? No COPD? No Asthma? No Anemia? No GERD? No Gastric ulcers? No GI Bleed? No Hernia? No Thyroid Problems? No Hypothyroidism? No CVA? No Seizures? Yes Diabetes? No Insulin Dependent: No Insulin Pump: No Home FSBS? No Renal Insuffiency? No UTI? No Stones? No BPH? No GB Disease: Yes Nephritic Syndrome? No Asplenia? No Hepatitis? No Sickle Cell Disease? No Arthritis? No Migraines? No Cataracts? No Glaucoma? No MRSA? No HIV? No TB? No Anxiety? No Depression? No Cancer? No More? No Immunization HX DT/Tetanus 1-4 Years Ago Flu 2012-FSN Pneumonia Refuses Surgical Hx Previous Surgery?Y I&D RT LEG HEART CATH GALLBLADDER Family History Family HX Diabetes Yes CAD Yes Hypertension Yes Hyperlipidemia Yes Cancer Yes TB No Social History Smoking Hx Smoker: Never Smoker Tobacco: No Alcohol Alcohol: Yes Review of Systems All Other Systems Reviewed and Negative Respiratory cough, shortness of breath Musculoskeletal back pain Physical Exam Vital Signs Vital Signs Date Time Temp Pulse Resp B/P Pulse O2 O2 Flow FiO2 Ox Delivery Rate 06/19 1051 97.8 50 20 119/72 97 General Appearance normal appearance, WD/WN, no apparent distress Ear, Nose, Throat hearing grossly normal, normal ENT inspection Respiratory Status Yes: trachea midline, chest symmetrical, non tender chest. No: respiratory distress. Lung Sounds bilateral: normal breath sounds, lungs clear. Cardiovascular normal exam, regular rate/rhythm Neurologic alert, normal exam, oriented x 3 Medical Decision Making LABS/Meds/Orders Pt receiving controlled substance in ED? No Results/Orders Current Medication Orders Sig/Kathia Start time Last Medication Dose Route Stop Time Status Admin Methylprednisolone 125 MG ONCE ONE 06/19 1145 AC Sodium Succinate IM 06/19 1146 Departure Departure Time of Disposition 1134 Disposition DC Home or Self Care(routine) Clinical Impression Primary Impression: Cough Condition STABLE Referrals Danny SHAIKH,Darin Rae (Family) Patient Instructions Cough, DI for Cough -- Adult Additional Instructions Take cough medication as prescribed Follow up with family doctor RAÚL Return if needed If you began to have worsening trouble breathing or pain go straight to ER Discharge Counseling Counseled pt/family regarding diagnosis, test results, medications/RX, home care, follow up needs Prescriptions Current Visit Scripts PROMETHAZINE/DEXTROMETHORPHAN (Promethazine-Dm Syrup) 5 ML PO Q6HP PRN cough #120 SYR at 1149
--- NOTE | 2017-06-19 11:29 | RADIOLOGY REPORT PS360 ---
CHEST(2 VIEWS-NOT PORTABLE) HISTORY: COUGH ORDERING PHYSICIAN: MEGHAN SALAZAR APRN PATIENT AGE: 47 years COMPARISON: 03/28/2017 FINDINGS: The cardiomediastinal silhouette and pulmonary vascularity are within normal limits. The lungs are clear without infiltrates, suspicious nodules, or pleural effusions. No acute bony abnormalities. IMPRESSION: Negative chest, no acute finding
[2017-06-19] MEDS ORDERED: PROMETHAZINE D118 ML PO (11:38)
[2017-06-19 11:44] VITALS: BP 125/80
== END 2017-06-19 11:46 | disposition home or self-care (01) ==
LOC: UTC 10:40
DX: R05 Cough (principal)